=== PATIENT | female | born 1960 | race Caucasian/White ===

== ENCOUNTER 2023-03-01 10:01 | Day surgery (SDC) | payer BC ==
[2023-02-26 11:04] VITALS: BMI 42.3
[2023-03-01] MEDS ORDERED: Lidocaine 2% MPF 10 ML AMP (For Epidural Use) ONE (11:57)
[2023-03-01] MEDS ORDERED: PROPOFOL 40 ML ONE (11:57)
== END 2023-03-01 14:00 | disposition home or self-care (01) ==
LOC: CSHSDC 10:01
PROVIDERS: ATTEND Internal Medicine Gastroenterology
PROC: 0DBN8ZX Excision of Sigmoid Colon, Via Natural or Artificial Opening Endoscopic, Diagnostic (ICD-10-PCS; principal; 2023-03-01)
DX: Z12.11 Encounter for screening for malignant neoplasm of colon (principal); D12.5 Benign neoplasm of sigmoid colon; K64.9 Unspecified hemorrhoids; E66.01 Morbid (severe) obesity due to excess calories; J30.9 Allergic rhinitis, unspecified; Z88.5 Allergy status to narcotic agent; Z79.899 Other long term (current) drug therapy; Z68.41 Body mass index [BMI] 40.0-44.9, adult
CPT/HCPCS: 88305; J2704